=== PATIENT | male | born 1955 | race Caucasian/White ===

== ENCOUNTER 2024-12-17 09:50 | Day surgery (SDC) | payer OTHER, MEDICARE ==
[~2024-12-17] VITALS: Ht 180.3 cm; Wt 73.4 kg
[~2024-12-17 09:50] MED LIST: ASPI-41 PO; ATOR10TA PO; COL100C PO; HYDR-3972 PO; LOP25T PO; NO HOME MEDS
[2024-12-17 10:15] VITALS: BP 143/78; PULSE 64; RESP 14; TEMP 97.9; O2SAT 99
[2024-12-17] MEDS ORDERED: MIDAZolam 1mg/ml 10ml vial IV ONE (10:25)
[2024-12-17] MEDS ORDERED: fentaNYL/PF 50MCG/1 ML 2ML syringe IV ONE (10:25)
[2024-12-17] MEDS: normal saline 1000ml 1,000 ML IV SCH (10:53)
[2024-12-17] MEDS ORDERED: midazolam 1 mg/ML 2ml injection ONE (13:26)
[2024-12-17] MEDS ORDERED: fentaNYL/PF 50MCG/1 ML 2ML syringe ONE (13:26)
[2024-12-17 14:04] VITALS: BP 136/72; PULSE 63; RESP 10; O2SAT 98
[2024-12-17 14:15] VITALS: BP 126/75; PULSE 64; RESP 14; O2SAT 98
[2024-12-17 14:30] VITALS: BP 117/73; PULSE 58; RESP 12; O2SAT 97
--- NOTE | 2024-12-18 06:14 | CARDIOLOGY REPORT ---
APPROVED REPORT EXAM: Focused, limited transesophageal echocardiogram with color flow Doppler. 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 Overall systolic function is normal. LVEF is 65%. RIGHT VENTRICLE RV is normal size and function. ATRIA Left atrium appears severely dilated. Right atrium appears at least moderately dilated. MITRAL VALVE Normal MV annulus with MV band repair present. Fixed posterior leaflet. Severe, eccentric (anteriorly directed) regurgitation. CONCLUSION Normal LV size and wall thickness. Overall systolic function is normal. LVEF is 65%. RV is normal siz e and function. Left atrium appears severely dilated. Right atrium appears at least moderately dilate d. Normal MV annulus with MV band repair present. Fixed posterior leaflet. Severe, eccentric (anterio rly directed) regurgitation. Conclusion Normal LV size and wall thickness. Overall systolic function is normal. LVEF is 65%. RV is normal size and function. Left atrium appears severely dilated. Right atrium appears at least moderately dilated. Normal MV annulus with MV band repair present. Fixed posterior leaflet. Severe, eccentric (anteriorl y directed) regurgitation.
== END 2024-12-17 14:35 | disposition home or self-care (01) ==
LOC: SSTAY O 09:50
PROVIDERS: ATTEND Student in an Organized Health Care Education/Training Program
DX: I34.0 Nonrheumatic mitral (valve) insufficiency (principal); E78.00 Pure hypercholesterolemia, unspecified; I50.30 Unspecified diastolic (congestive) heart failure; Z88.2 Allergy status to sulfonamides; Z88.8 Allergy status to other drugs, medicaments and biological substances
CPT/HCPCS: 93312; 93325; J2250; J3010; J7030; 76376; 99152